=== PATIENT | male | born 1960 | race Caucasian/White ===

== ENCOUNTER 2022-11-20 16:53 | Inpatient (IN) | payer OTHER ==
[2022-11-20] MEDS ORDERED: FUROSEMIDE 40 MG/4 ML INJECTABLE VIAL IVPUSH ONE (17:20)
[2022-11-20] MEDS ORDERED: FUROSEMIDE 40 MG/4 ML INJECTABLE VIAL ONE ×2 (17:59→22:57)
[2022-11-20] MEDS ORDERED: VANCOMYCIN 1 GM in D5W (PRE-DOCKED) 1,000 MG/250 ML (RESTRICTED TO ID ONLY IVPB ONE (18:03)
[2022-11-20] MEDS ORDERED: PIPERACILLIN/TAZOB 4.5 GM 4.5 GM in DEXTROSE 5%-WATER 100 ML IVPB ONE (18:03)
[2022-11-20] MEDS ORDERED: AZITHROMYCIN IVPB 500 MG in DEXTROSE 5%-WATER - 250 ML IVPB ONE (18:04)
[2022-11-20 18:06] LABS: BASO % 0.1 % (0-2.0); EOS % 0.3 % (0-4.5); HEMATOCRIT 42.8 % (35.4-49); HEMOGLOBIN 14.3 GM/dL (11.7-16.9); LYMPH % 5.8 % (8-40); MCH 31.6 pg (25.7-33.7); MCHC 33.4 g/dl (32.0-35.9); MEAN CELL VOLUME 94.6 fl (80-96); MEAN PLT VOLUME 9.6 fl (7.5-11.1); MONO % 8.3 % (3.8-10.2); NEUT % 85.5 % (42.8-82.8); PLATELET COUNT 187 10^3/uL (134-434); RBC 4.52 M/mm3 (4.00-5.60); RDW 23.7 % (11.9-15.9); WHITE BLOOD COUNT 16.7 K/mm3 (4.0-10.0)
[2022-11-20] MEDS ORDERED: PIPERACILLIN/TAZOB 4.5 GM 4.5 GM/100 ML BAG IVPB ONE ×2 (18:06→19:44)
[2022-11-20 18:18] LABS: VENOUS BASE EXCESS 3.4 mmol/L (-2-2); VENOUS O2 SATURATION 40.4 % (70-80); VENOUS PCO2 55.6 mmHg (38-52); VENOUS PH 7.356 (7.310-7.410)
[2022-11-20 18:34] LABS: POTASSIUM 3.9 mmol/L (3.5-5.1)
[2022-11-20 18:36] LABS: CALCIUM 9.7 mg/dL (8.5-10.1)
[2022-11-20 18:37] LABS: ALBUMIN 3.5 g/dl (3.4-5.0); BLOOD UREA NITROGEN 29.5 mg/dL (7-18)
[2022-11-20 18:40] LABS: CREATININE 1.4 mg/dL (0.55-1.3)
[2022-11-20 18:41] LABS: ANISOCYTOSIS 3+; MACROCYTOSIS 2+; OVALOCYTE 1+; TARGET CELLS 2+; TEAR DROP CELLS 1+
[2022-11-20 18:42] LABS: TOT PROT 7.2 g/dl (6.4-8.2)
[2022-11-20 18:45] LABS: N-TERMINAL BNP 24057.2 pg/ml (5-125)
[2022-11-20] MEDS ORDERED: VANCOMYCIN/WATER FOR INJ (PEG) 1,000 MG/200 ML BAG IVPB ONE (19:45)
[2022-11-20] MEDS ORDERED: MEXILETINE HCL 200 MG PO SCH (22:00)
[2022-11-20] MEDS ORDERED: MONTELUKAST NA 10 MG TABLET PO SCH (22:00)
[2022-11-20] MEDS ORDERED: HEPARIN NA (PORCINE) 5,000 UNITS/ML 1ML VIAL ONE (22:36)
[2022-11-20] MEDS ORDERED: MONTELUKAST NA 10 MG TABLET ONE (22:36)
[2022-11-20] MEDS: HEPARIN NA (PORCINE) 5,000 UNITS/ML 1ML VIAL SQ SCH (22:46)
[2022-11-20] MEDS: FUROSEMIDE 100 MG/10 ML INJECTABLE VIAL IVPB SCH (23:32)
[2022-11-21 02:27] VITALS: BMI 32.4
[2022-11-21] MEDS: PIPERACILLIN/TAZOB 3.375 GM 3.375 GM in DEXTROSE 5%-WATER - 50 ML IVPB SCH ×3 (03:56→17:28)
[2022-11-21] MEDS: FUROSEMIDE 100 MG/10 ML INJECTABLE VIAL IVPB SCH (06:11)
[2022-11-21] MEDS: HEPARIN NA (PORCINE) 5,000 UNITS/ML 1ML VIAL SQ SCH (06:12)
[2022-11-21] MEDS ORDERED: ACETAMINOPHEN 500 MG TABLET (FP) PO PRN (06:51)
[2022-11-21] MEDS ORDERED: metoPROLOL SUCCINATE 25 MG TAB.SR.24H (FP) PO SCH (10:00)
[2022-11-21] MEDS ORDERED: APIXABAN 5 MG TABLET PO SCH (10:00)
[2022-11-21] MEDS ORDERED: POTASSIUM CHLORIDE TABS 10 MEQ TABLET.ER (FP) PO SCH (10:00)
[2022-11-21 10:36] LABS: BASO % 1.5 % (0-2.0); EOS % 1.1 % (0-4.5); HEMATOCRIT 38.6 % (35.4-49); HEMOGLOBIN 12.8 GM/dL (11.7-16.9); LYMPH % 3.4 % (8-40); MCH 31.3 pg (25.7-33.7); MCHC 33.2 g/dl (32.0-35.9); MEAN CELL VOLUME 94.3 fl (80-96); MEAN PLT VOLUME 9.1 fl (7.5-11.1); MONO % 5.3 % (3.8-10.2); NEUT % 88.7 % (42.8-82.8); PLATELET COUNT 191 10^3/uL (134-434); RDW 22.9 % (11.9-15.9); WHITE BLOOD COUNT 16.2 K/mm3 (4.0-10.0)
[2022-11-21 10:47] LABS: INR 2.26 (0.83-1.09)
[2022-11-21 10:59] LABS: POTASSIUM 3.2 mmol/L (3.5-5.1)
[2022-11-21 11:00] LABS: CALCIUM 9.1 mg/dL (8.5-10.1)
[2022-11-21 11:01] LABS: BLOOD UREA NITROGEN 30.2 mg/dL (7-18)
[2022-11-21 11:04] LABS: CREATININE 1.4 mg/dL (0.55-1.3)
[2022-11-21 11:06] LABS: BILIRUBIN,TOTAL 5.7 mg/dL (0.2-1); TOT PROT 6.5 g/dl (6.4-8.2)
[2022-11-21] MEDS: KCL 10 MEQ IVPB 10 MEQ/100 ML INFUS.BAG IVPB SCH ×2 (11:52→12:34)
[2022-11-21] MEDS ORDERED: MIDODRINE HCL 5 MG TABLET PO ONE (18:03)
[2022-11-21 19:51] VITALS: BP 103/50; PULSE 63; RESP 100; TEMP 98.7
[2022-11-21] MEDS ORDERED: MIDODRINE HCL 5 MG TABLET PO SCH (22:00)
[2022-11-22] MEDS ORDERED: PIPERACILLIN/TAZOB 3.375 GM 3.375 GM in DEXTROSE 5%-WATER - 50 ML IVPB SCH (02:00)
== END 2022-11-21 19:40 | disposition short-term general hospital (02) | DRG 291 ==
LOC: JER 16:53 → JERBED 19:56 → J4W 23:28
PROVIDERS: ADMIT Internal Medicine; ATTEND Internal Medicine
DX: I11.0 Hypertensive heart disease with heart failure (principal); I50.23 Acute on chronic systolic (congestive) heart failure; J81.1 Chronic pulmonary edema; I47.20 Ventricular tachycardia, unspecified; K81.0 Acute cholecystitis; E87.6 Hypokalemia; L03.119 Cellulitis of unspecified part of limb; R17 Unspecified jaundice; K21.9 Gastro-esophageal reflux disease without esophagitis; I25.10 Atherosclerotic heart disease of native coronary artery without angina pectoris; E78.5 Hyperlipidemia, unspecified; J44.9 Chronic obstructive pulmonary disease, unspecified; K76.0 Fatty (change of) liver, not elsewhere classified; I48.0 Paroxysmal atrial fibrillation; I25.5 Ischemic cardiomyopathy; Z95.810 Presence of automatic (implantable) cardiac defibrillator
CPT/HCPCS: 0241U-QW; 36415; 71045-TC-FY; 71250-TC; 76705-TC; 80048; 80053; 82803; 82962; 83036; 83690; 83735; 83880; 84443; 84484; 85025; 85610; 87040; 93005; 93010; 94660; 99285-25; J1644